=== PATIENT | male | born 1960 | race Caucasian/White ===

== ENCOUNTER 2022-04-17 16:01 | Outpatient (REF) | payer OTHER, SELFPAY ==
[2022-04-17 15:36] LABS: Calculated LDL 141 mg/dL (<100); Cholesterol 216 mg/dL (<200); Glucose 95 mg/dL (74-106); HDL Cholesterol 45 mg/dL (40-60); Triglyceride 153 mg/dL (<150)
== END 2022-04-17 16:02 | disposition home or self-care (01) ==
LOC: NCHCN 16:01
PROVIDERS: PCP Specialist/Technologist Athletic Trainer; Visit Provider Nurse Practitioner Family
DX: Z00.00 Encounter for general adult medical examination without abnormal findings (principal)
CPT/HCPCS: 80061; 82947

== ENCOUNTER 2023-05-10 13:20 | Outpatient (REF) | payer OTHER, SELFPAY ==
[2023-05-10 15:57] LABS: Calculated LDL 160 mg/dL (<100); Cholesterol 232 mg/dL (<200); Glucose 104 mg/dL (74-106); HDL Cholesterol 49 mg/dL (40-60); Triglyceride 119 mg/dL (<150)
== END 2023-05-10 13:21 | disposition home or self-care (01) ==
LOC: NCHCN 13:20
PROVIDERS: PCP Specialist/Technologist Athletic Trainer; Visit Provider Nurse Practitioner Family
DX: Z00.00 Encounter for general adult medical examination without abnormal findings (principal); Z13.220 Encounter for screening for lipoid disorders; Z13.1 Encounter for screening for diabetes mellitus
CPT/HCPCS: 80061; 82947

== ENCOUNTER 2024-01-04 09:08 | Outpatient (REF) | payer OTHER, SELFPAY ==
[2024-01-04 16:01] LABS: Hemoglobin A1C 5.8 % (<5.7)
[2024-01-04 16:03] LABS: Calculated LDL 154 mg/dL (<100); Cholesterol 223 mg/dL (<200); HDL Cholesterol 47 mg/dL (40-60); Triglyceride 112 mg/dL (<150)
== END 2024-01-04 09:09 | disposition home or self-care (01) ==
LOC: NCHCN 09:08
PROVIDERS: PCP Specialist/Technologist Athletic Trainer; Visit Provider Nurse Practitioner Family
DX: E78.5 Hyperlipidemia, unspecified (principal); Z13.1 Encounter for screening for diabetes mellitus
CPT/HCPCS: 80061; 83036

== ENCOUNTER 2024-07-10 18:20 | Outpatient (REF) | payer OTHER, SELFPAY ==
[2024-07-10 20:15] LABS: ALT 31 U/L (16-63); AST 31 U/L (15-37); Albumin 3.8 g/dL (3.4-5.0); Alkaline Phosphatase 84 U/L (46-116); BUN 17 mg/dL (7-18); Bilirubin, Total 0.28 mg/dL (0.2-1.0); CREATININE 1.1 mg/dL (0.70-1.30); Calcium 9.5 mg/dL (8.5-10.1); Calculated LDL 117 mg/dL (<100); Chloride 105 mmol/L (98-107); Cholesterol 215 mg/dL (<200); Glucose 128 mg/dL (74-106); HDL Cholesterol 50 mg/dL (40-60); Potassium 4.3 mmol/L (3.5-5.1); Sodium 142 mmol/L (136-145); Total Protein 7.8 g/dL (6.4-8.2); Triglyceride 244 mg/dL (<150); Vitamin D 25 Total 18.1 ng/mL (30-100)
[2024-07-11 22:33] LABS: PSA, Screening 1.2 ng/mL (<=4.5)
== END 2024-07-10 18:21 | disposition home or self-care (01) ==
LOC: NCHCN 18:20
PROVIDERS: PCP Specialist/Technologist Athletic Trainer; Visit Provider Nurse Practitioner Family
DX: E78.5 Hyperlipidemia, unspecified (principal); Z00.00 Encounter for general adult medical examination without abnormal findings
CPT/HCPCS: 80053; 80061; 82306; 84153

== ENCOUNTER 2025-06-25 19:12 | Outpatient (REF) | payer OTHER, SELFPAY ==
[2025-06-25 20:05] LABS: Hemoglobin A1C 5.6 % (<5.7)
[2025-06-25 20:25] LABS: ALT 38 U/L (16-63); AST 27 U/L (15-37); Albumin 3.8 g/dL (3.4-5.0); Alkaline Phosphatase 72 U/L (46-116); Anion Gap 7.4 mmol/L (3-11); BUN 17 mg/dL (7-18); Bilirubin, Total 0.2 mg/dL (0.2-1.0); CO2 29.6 mmol/L (21.0-32.0); Calcium 8.6 mg/dL (8.5-10.1); Calculated LDL 145 mg/dL (<100); Chloride 104 mmol/L (98-107); Cholesterol 227 mg/dL (<200); Estimated GFR 94.19 (mL/min/1.73m2); Glucose 112 mg/dL (74-106); HDL Cholesterol 44 mg/dL (>or=40); Potassium 4.1 mmol/L (3.5-5.1); Sodium 141 mmol/L (136-145); Total Protein 7.2 g/dL (6.4-8.2); Triglyceride 194 mg/dL (<150); Vitamin D 25 Total 21 ng/mL (30-100)
== END 2025-06-25 19:13 | disposition home or self-care (01) ==
LOC: NCHCN 19:12
PROVIDERS: PCP Specialist/Technologist Athletic Trainer; Visit Provider Nurse Practitioner Family
DX: R73.03 Prediabetes (principal); E55.9 Vitamin D deficiency, unspecified; E78.5 Hyperlipidemia, unspecified
CPT/HCPCS: 80053; 80061; 82306; 83036

== ENCOUNTER → 2025-08-06 00:47 | Outpatient (CLI) | payer MEDICARE, SELFPAY ==
--- NOTE | 2025-08-06 07:10 | DI.US_ITS ---
Exam(s) US AAA SCREENING EXAM: US AAA SCREENING CLINICAL HISTORY: SCREENING FOR AAA Z13.6 [employer]MER [employer]MOK[employer] COMPARISON: No exams were available for comparison FINDINGS: Abdominal Aorta: Proximal: 2.5 cm Mid: 2.5 cm Distal: 2.4 cm Iliacs: Right: 1.6 cm Left: 1.7 cm Hepatic steatosis is noted. IMPRESSION: No evidence of abdominal aortic aneurysm. DATA REPOSITORY:
== END ==
PROVIDERS: PCP Nurse Practitioner Family; Visit Provider Nurse Practitioner Family
DX: Z13.6 Encounter for screening for cardiovascular disorders (principal)
CPT/HCPCS: 76706